=== PATIENT | female | born 1990 | race Caucasian/White ===

== ENCOUNTER 2016-09-24 03:22 | Emergency (ER) | payer OTHER ==
[2016-09-24 03:29] VITALS: BP 116/77; PULSE 83; RESP 16; O2SAT 96
[2016-09-24 03:31] VITALS: TEMP 98.1
[2016-09-24] MEDS ORDERED: IBUPROFEN 600 MG TAB PO ONE ×2 (03:47→04:45)
--- NOTE | 2016-09-24 03:53 | EDPHY ---
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 Patient states that when she is attempting to lift the patient was not cooperative she felt a pulling in her shoulder. Has had pain in her posterior shoulder since. No prior injuries. No numbness or tingling. Has not had any falls or direct traumatic injuries. ROS: 10 point Review of Systems is negative except as noted in the HPI. Physical exam: General: Awake, alert, no acute distress Left shoulder: She has tenderness along the posterior line and along the infraspinatus. Mild anterior tenderness. There is no bony deformities. She has decreased range of motion secondary to pain. Elbow was nontender with full range of motion. She is intact in the radial, median, and ulnar nerve distribution. Cap refills less than 2 seconds. Skin: No rash ED Course: Left shoulder x-ray ordered at triage is negative per my interpretation. Patient has been placed in a sling, given ice, given ibuprofen. She will follow up with workman's Comp in orthopedics General Time Seen by Provider: 09/24/16 03:44 Initial Vital Signs: Initial Vital Signs Temperature (C) 36.7 C 09/24/16 03:25 Heart Rate 83 09/24/16 03:25 Respiratory Rate 16 09/24/16 03:25 Blood Pressure 116/77 09/24/16 03:25 O2 Sat (%) 96 09/24/16 03:25 O2 Delivery Mode Room Air Allergies/Adverse Reactions: cefaclor [From Ceclor] Allergy (Verified 09/24/16 03:28) Home Medications: Medication Instructions Recorded Levothyroxine 09/24/16 Novolog Mix 70/30 (*) 09/24/16 Departure - Departure Disposition: Home, Routine, Self-Care Clinical Impression: Shoulder sprain Condition: Good Instructions: Shoulder Sprain (ED) Additional Instructions: May alternate ibuprofen and acetaminophen for pain. Apply ice for 10 minutes every hour while awake for pain. Follow up with workman's comp and Orthopedics for further evaluation. Do not return to work until you are cleared by workman's Comp. Referrals: Matthias Vital MD [Medical Doctor] - As per Instructions
--- NOTE | 2016-09-24 09:03 | DX ---
Left Shoulder, Three Views History: Pain post recent dislocation, decreased range of motion and tenderness. Findings: The humeral head is well rounded and normally located. No fracture or malalignment is ident ified. The AC joint is normally aligned. I do not identify a Hill-Sachs deformity. Impression: No source for pain identified.
== END 2016-09-24 04:43 | disposition home or self-care (01) ==
DX: S43.402A Unspecified sprain of left shoulder joint, initial encounter (principal); Z79.4 Long term (current) use of insulin; X58.XXXA Exposure to other specified factors, initial encounter; Y93.89 Activity, other specified

== ENCOUNTER → 2016-10-01 | Outpatient (CLI) | payer OTHER ==
--- NOTE | 2016-10-01 11:00 | MR ---
MRI Upper Extremity, Left Shoulder History: Shoulder pain. Lifting injury. Technique: MRI was performed of the left shoulder using a 1.5 Dione MRI system. Oblique coronal, obli que sagittal, and axial images were obtained with standard imaging sequences. Findings: General: No evidence for fracture. No significant axillary lymphadenopathy. Acromioclavicular Region: No significant degenerative change. Slight anterior tilt to the acromion. S light subacromial fluid. Rotator Cuff: Mild abnormal signal intensity is seen in the infraspinatus tendon without attenuation. Supraspinatus is unremarkable. Teres minor is unremarkable. Subscapularis is unremarkable. No eviden ce of edema or atrophy of the rotator cuff musculature. Biceps tendon: Long head biceps tendon is seen within the bicipital groove. Intraarticular long head biceps tendon is unremarkable. Glenohumeral Joint: No evidence for labral tear. No evidence for an articular cartilage defect of the glenohumeral joint. No significant glenohumeral joint effusion. Impression: Mild tendinopathy or strain distal infraspinatus tendon. Minimal subacromial bursitis.
== END ==
LOC: FIMAGING 09:12
PROVIDERS: ATTEND Physical Medicine & Rehabilitation
DX: M75.112 Incomplete rotator cuff tear or rupture of left shoulder, not specified as traumatic (principal)

== ENCOUNTER 2017-07-31 13:10 | Emergency (ER) | payer BC ==
--- NOTE | 2017-07-31 15:33 | EDPHY ---
H & P Stated Complaint: TYPE 1 DIABETIC AND HAS THE FLU. FEELS " FAINT " - Personal History LMP (Females 10-55): Unknown Current Tetanus/Diphtheria Vaccine: Yes Current Tetanus Diphtheria and Acellular Pertussis (TDAP): Yes - Medical/Surgical History Hx Asthma: No Hx Chronic Respiratory Disease: No Hx Diabetes: Yes Hx Renal Disease: No Hx Cirrhosis: No Hx Alcoholism: No Hx HIV/AIDS: No Hx Splenectomy or Spleen Trauma: No Other PMH: IDDM on pump, hypothyroid - Social History Smoking Status: Never smoked Time Seen by Provider: 07/31/17 15:23 HPI/ROS: CHIEF COMPLAINT: Nausea vomiting diarrhea HISTORY OF PRESENT ILLNESS: 26-year-old female insulin-dependent diabetic complaining of 3 days of nausea vomiting diarrhea. Her boyfriend has been sick with similar. No abdominal pain. Urine output normal. Serum glucose has been between 130-230. No fever no chills. No abdominal pain. No back or flank pain. REVIEW OF SYSTEMS: A ten point review of systems was performed and is negative with the exception of the items mentioned in the HPI PAST MEDICAL & SURGICAL HISTORY: insulin-dependent diabetes with pump SOCIAL HISTORY:nonsmoker, works as a nurse at [employer] PHYSICAL EXAM (Prior to examination, patient consented to physical exam, hands were washed and my usual and customary physical exam procedures followed) 1) GENERAL: Well-developed, well-nourished, alert and oriented. Appears nontoxic. 2) HEAD: Normocephalic, atraumatic 3) HEENT: Pupils equal, round, reactive to light bilaterally. Sclera anicteric. Nasopharynx, oropharynx, clear, no lesions dry mucous membranes 4) NECK: Full range of motion, no meningeal signs. 5) LUNGS: Clear auscultation bilaterally, no wheezes, no rhonchi, no retractions. 6) HEART: Regular rate and rhythm, no murmur, no heave, no gallop. 7) ABDOMEN: No guarding, no rebound, no focal tenderness, negative McBurney's, negative Gifford's, negative Rovsing's, negative peritoneal sign, unable to elicit any abdominal pain 8) MUSCULOSKELETAL: Moving all extremities, no focal areas of tenderness, no obvious trauma. No peripheral edema or discoloration. 9) BACK: No CVA tenderness, no midline vertebral tenderness, no fluctuance, no step-off, no obvious trauma, no visual or palpable abnormality. 10) SKIN: No rash, no petechiae. 11) Psychiatric: Patient is oriented X 3, there is no agitation. DIFFERENTIAL DIAGNOSIS: [in no particular order including but not limited to DKA, gastroenteritis, acute appendicitis, (Edu Calderon Parul) Constitutional: Initial Vital Signs Temperature (C) 36.9 C 07/31/17 13:35 Heart Rate 97 07/31/17 13:35 Respiratory Rate 16 07/31/17 13:35 Blood Pressure 109/79 07/31/17 13:35 O2 Sat (%) 95 07/31/17 13:35 O2 Delivery Mode Room Air Allergies/Adverse Reactions: cefaclor [From Ceclor] Allergy (Verified 09/24/16 03:28) Home Medications: Medication Instructions Recorded Levothyroxine 09/24/16 Novolog Mix 70/30 (*) 09/24/16 Ondansetron Odt [Zofran Odt] 4 mg PO Q4PRN PRN #7 tab 07/31/17 Medical Decision Making ED Course/Re-evaluation: 3:33 p.m.: Old medical records reviewed.Care of patient under supervision of secondary supervising physician Dr Nicole . 4:42 p.m.: Patient has received IV hydration. I reviewed her laboratory studies with her. She is not acidotic. She is feeling significant improvement after IV hydration. She was unable to provide stool sample in the ER. Nausea has resolved. Re-evaluation of abdomen which remained soft no guarding no rebound. Doubt acute surgical abdominal pathology, doubt acute appendicitis, doubt ectopic , doubt DKA. She is tolerating oral intake. I think the patient can be discharged. She will be discharged with oral Zofran prescription, clear liquids advancement to bland diet. Given usual and customary discharge precautions instructions. She feels comfortable being discharged all questions and concerns addressed by myself. (Edu Calderon) The patient was evaluated and managed by the physician assistant professor of spanish. I have reviewed this chart and I agree with the findings and plan of care as documented , as indicated by my signature. I am the secondary supervising physician. ( Cabeen,Susy A) - Data Points Laboratory Results: Laboratory Results 07/31/17 15:35 07/31/17 15:35 Medications Given: Discontinued Medications Sodium Chloride (Ns) 1,000 mls @ 0 mls/hr IV ONCE ONE; Wide Open PRN Reason: Protocol Stop: 07/31/17 15:56 Last Admin: 07/31/17 14:55 Dose: 1,000 mls Departure - Departure Disposition: Home, Routine, Self-Care Clinical Impression: Nausea and vomiting, Volume depletion Condition: Good Instructions: Acute Nausea and Vomiting (ED) Additional Instructions: Return to the emergency department immediately if you develop abdominal pain, if you are unable to keep food or fluid down or any other symptoms that concern you. Recommend you ingested clear liquids advancement bland foods which is plain rice, bananas, slowly. Referrals: UNKNOWN,JULIAN [Other] - 1-2 days without fail Stand Alone Forms: Work Excuse Prescriptions: Ondansetron Odt [Zofran Odt] 4 mg PO Q4PRN PRN #7 tab PRN Reason: Nausea
[2017-07-31] MEDS ORDERED: NS 1,000 ML IV ONE (15:55)
[2017-07-31 16:02] LABS: % IMMATURE GRANULYOCYTES 0.2 % (0.0-1.1); ABSOLUTE IMMATURE GRANULOCYTES 0.01 10^3/uL (0.00-0.10); ADD DIFF? NO; ADD MORPH? NO; ADD SCAN? NO; ATYPICAL LYMPHOCYTE FLAG 70 (0-99); FRAGMENT RBC FLAG 0 (0-99); HEMATOCRIT 42.2 % (38.0-47.0); HEMOGLOBIN 15.2 g/dL (12.6-16.3); LEFT SHIFT FLG 0 (0-99); LIPEMIA HEMOLYSIS FLAG 90 (0-99); MEAN CELL HEMOGLOBIN 31.7 pg (27.9-34.1); MEAN CELL VOLUME 88.1 fL (81.5-99.8); MEAN PLATELET VOLUME 9.7 fL (8.7-11.7); PLATELET CLUMPS FLAG 0 (0-99); PLATELET COUNT 268 10^3/uL (150-400); RED BLOOD CELL COUNT 4.79 10^6/uL (4.18-5.33); RED CELL DISTRIBUTION WIDTH 11.8 % (11.5-15.2)
[2017-07-31 16:17] LABS: ALANINE AMINOTRANSFERASE 31 IU/L (9-52); ALBUMIN 4.1 g/dL (3.5-5.0); ALKALINE PHOSPHATASE 56 IU/L (38-126); ANION GAP 13 mEq/L (8-16); ASPARTATE AMINOTRANSFERASE 19 IU/L (14-46); BILIRUBIN,TOTAL 0.3 mg/dL (0.1-1.4); BILIRUBIN-UNCONJUGATED 0.3 mg/dL (0.0-1.1); CALCIUM 8.9 mg/dL (8.5-10.4); CARBON DIOXIDE 24 mEq/l (22-31); CHLORIDE 100 mEq/L (97-110); CREATININE 0.6 mg/dL (0.6-1.0); GLOMERULAR FILTRATION RATE > 60; GLUCOSE 169 mg/dL (70-100); POTASSIUM 3.6 mEq/L (3.5-5.2); SODIUM 137 mEq/L (134-144); TOTAL PROTEIN 7.1 g/dL (6.3-8.2)
[2017-07-31 16:26] LABS: COLOR YELLOW; LEUKOCYTE ESTERASE,URINE NEGATIVE (NEGATIVE); NITRITE,URINE NEGATIVE (NEGATIVE)
[2017-07-31 16:31] LABS: RBC,URINE NONE SEEN /hpf (0-3)
[2017-07-31 16:43] LABS: B-HYDROXYBUTYRATE 0.31 mmol/L (0.02-0.27)
[2017-07-31 16:56] VITALS: O2SAT 97
[2017-07-31 16:58] VITALS: BP 112/79; PULSE 81; RESP 16; TEMP 97.9
== END 2017-07-31 16:57 | disposition home or self-care (01) ==
DX: E86.9 Volume depletion, unspecified (principal); E11.9 Type 2 diabetes mellitus without complications; Z79.4 Long term (current) use of insulin